=== PATIENT | male | born 1940 | race Caucasian/White ===

== ENCOUNTER 2016-07-22 14:29 | Emergency (ER) | payer MEDICARE ==
[2016-07-22 14:39] VITALS: BP 116/79
--- NOTE | 2016-07-22 15:25 | EDM.PDOC ---
ED HPI Trauma - General Chief Complaint: Lower Extremity Injury/Pain Stated Complaint: LEFT LEG Time Seen by Provider: 07/22/16 14:40 Source: Reports: Patient History Limitations: Reports: No limitations - History of Present Illness INITIAL COMMENTS - FREE TEXT/NARRATIVE: History of present illness: [75-year-old male presenting with planes of left popliteal pain. Patient indicates he is concerned he might have pink blood clot. Patient acknowledges that he doesn't have any reason to bases concern other than he does have left knee pain. Patient denies trauma, denies recent travel, denies any known blood dyscrasias or quite uropathies.] Review of systems: As per history of present illness and below otherwise all systems reviewed and negative. Past medical history: As per history of present illness and as reviewed below otherwise noncontributory. Surgical history: As per history of present illness and as reviewed below otherwise noncontributory. Social history: No reported history of drug or alcohol abuse. Family history: As per history of present illness and as reviewed below otherwise noncontributory. Physical exam: HEENT: Atraumatic, normocephalic, pupils reactive, negative for conjunctival pallor or scleral icterus, mucous membranes moist, throat clear, neck supple, nontender, trachea midline. Lungs: Clear to auscultation, breath sounds equal bilaterally, chest nontender. Heart: S1S2, regular, negative for clicks, rubs, or JVD. Abdomen: Soft, nondistended, nontender. Negative for masses or hepatosplenomegaly. Negative for costovertebral tenderness. Pelvis: Stable nontender. Genitourinary: Deferred. Rectal: Deferred. Extremities: Atraumatic, negative for cords or calf pain. Neurovascular unremarkable. Neuro: Awake, alert, oriented. Cranial nerves II through XII unremarkable. Cerebellum unremarkable. Motor and sensory unremarkable throughout. Exam nonfocal. Global assessment was benign. Patient noted to have some tenderness with active range of motion and palpation behind the popliteal space. No swelling, edema, and or redness. Peripheral pulses equally palpable with equal CMST bilaterally . Diagnostics: [Venous Doppler left lower extremity, CBC, CMP, PT/INR] Therapeutics: [Toradol] Impression: [Leg pain] Plan: [arthritic pain] Definitive disposition and diagnosis as appropriate pending reevaluation and review of above. Allergies/ADRs: Allergies No Known Allergies Allergy (Verified 07/22/16 14:37) Home Medications: Ambulatory Orders Escitalopram [Lexapro] 20 mg PO DAILY 07/22/16 [Confirmed 07/22/16] Meloxicam 7.5 mg PO BID #30 tablet 07/22/16 Simvastatin [Zocor] 20 mg PO DAILY 07/22/16 [Confirmed 07/22/16] Tamsulosin [Flomax] 0.4 mg PO BIDPC 07/22/16 [Confirmed 07/22/16] Venlafaxine [Effexor] 07/22/16 Zolpidem [Ambien] 10 mg PO 07/22/16 Past Medical History Cardiovascular History: Reports: High cholesterol Psychiatric History: Reports: Depression - Infectious Disease History Infectious Disease History: Reports: Chicken pox, Measles, Mumps - Past Surgical History Oncologic Surgical History: Reports: Other (see below) Other Oncologic Surgeries/Procedures: 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 Social & Family History - Family History Family Medical History: Noncontributory - Tobacco Use Smoking Status *Q: Former Smoker Used Tobacco, but Quit: Yes Month Tobacco Last Used: unknown - Alcohol Use Days Per Week of Alcohol Use: 7 Number of Drinks Per Day: 1 Total Drinks Per Week: 7 - Recreational Drug Use Recreational Drug Use: No Review of Systems - Review of Systems Review Of Systems: See Below (See history of present illness) Trauma Exam - Physical Exam Exam: See Below (See history of present illness) Course - Vital Signs Last Recorded V/S: Last Vital Signs Temp 36.2 C 07/22/16 14:37 Pulse 118 H 07/22/16 14:37 Resp 18 07/22/16 14:37 BP 116/79 07/22/16 14:37 Pulse Ox 97 07/22/16 14:37 - Orders/Labs/Meds Labs: Laboratory Tests 07/22/16 07/22/16 07/22/16 Range/Units 15:14 15:14 15:14 WBC 12.06 H (4.0-11.0) K/uL RBC 4.89 (4.50-5.90) M/uL Hgb 15.7 (13.0-17.0) g/dL Hct 46.3 (38.0-50.0) % MCV 94.7 (80.0-98.0) fL MCH 32.1 H (27.0-32.0) pg MCHC 33.9 (31.0-37.0) g/dL RDW Std Deviation 47.3 (28.0-62.0) fl RDW Coeff of Cedric 14 (11.0-15.0) % Plt Count 223 (150-400) K/uL MPV 10.50 (7.40-12.00) fL Neut % (Auto) 51.2 (48.0-80.0) % Lymph % (Auto) 41.8 H (16.0-40.0) % [place] % (Auto) 5.6 (0.0-15.0) % Eos % (Auto) 1.2 (0.0-7.0) % Baso % (Auto) 0.2 (0.0-1.5) % Neut # (Auto) 6.2 H (1.4-5.7) K/uL Lymph # (Auto) 5.0 H (0.6-2.4) K/uL [place] # (Auto) 0.7 (0.0-0.8) K/uL Eos # (Auto) 0.1 (0.0-0.7) K/uL Baso # (Auto) 0.0 (0.0-0.1) K/uL Nucleated RBC % 0.0 /100WBC Nucleated RBCs # 0 K/uL INR 1.02 (0.86-1.11) Sodium 136 (136-146) mmol/L Potassium 4.4 (3.5-5.1) mmol/L Chloride 105 (98-110) mmol/L Carbon Dioxide 20 L (21-31) mmol/L BUN 20 (6.0-23.0) mg/dL Creatinine 1.4 (0.6-1.5) mg/dL Est Cr Clr Drug Dosing 51.58 mL/min Estimated GFR (MDRD) 49.7 ml/min Glucose 118 H (60-110) mg/dL Calcium 9.6 (8.8-10.8) mg/dL Total Bilirubin 0.6 (0.1-1.5) mg/dL AST 19 (5-40) IU/L ALT 25 (8-54) IU/L Alkaline Phosphatase 72 (40-150) Total Protein 6.9 (6.0-8.0) g/dL Albumin 4.3 (3.4-4.8) g/dL Globulin 2.6 (2.0-3.5) g/dL Albumin/Globulin Ratio 1.7 (1.3-2.8) Meds: Medications Discontinued Medications Generic Name Dose Route Start Last Admin Trade Name Waleq PRN Reason Stop Dose Admin Ketorolac Tromethamine 60 mg 07/22/16 16:20 07/22/16 16:48 Toradol IM 07/22/16 16:21 60 mg ONETIME ONE Administration Departure - Departure Time of Disposition: 16:58 Disposition: Home, Self-Care 01 Condition: good Clinical Impression: Knee pain, left Clinical Impression: (Ruled Out): Knee pain, left anterior Prescriptions: Meloxicam 7.5 mg PO BID #30 tablet Referrals: PCP,None [Primary Care Provider] - Forms: ED Department Discharge, ED Summary Discharge Additional Instructions: The following information is given to patients seen in the emergency department who are being discharged to home. This information is to outline your options for follow-up care. We provide all patients seen in our emergency department with a follow-up referral. The need for follow-up, as well as the timing and circumstances, are variable depending upon the specifics of your emergency department visit. If you don't have a primary care physician on staff, we will provide you with a referral. We always advise you to contact your personal physician following an emergency department visit to inform them of the circumstance of the visit and for follow-up with them and/or the need for any referrals to a consulting specialist. The emergency department will also refer you to a specialist when appropriate. This referral assures that you have the opportunity for follow-up care with a specialist. All of these measure are taken in an effort to provide you with optimal care, which includes your follow-up. Under all circumstances we always encourage you to contact your private physician who remains a resource for coordinating your care. When calling for follow-up care, please make the office aware that this follow-up is from your recent emergency room visit. If for any reason you are refused follow-up, please contact the [facility] Emergency Department at and asked to speak to the emergency department charge nurse. Take medication as directed Followup with PCP 1-2 days Turned ED as needed as discussed
--- NOTE | 2016-07-22 16:01 | US ---
ULTRASOUND EXAMINATION OF the left lower extremity WITH DOPPLER HISTORY: Pain FINDINGS: Examination of the left leg was performed from the groin to the calf region. All visualized segment s including common femoral, proximal greater saphenous, superficial femoral, popliteal and calf vein s appear patent with good compressibility and augmentation. There is no evidence of deep vein throm bosis. IMPRESSION: No evidence of a DVT.
[2016-07-22] MEDS ORDERED: Ketorolac 60 MG/2 ML SDV IM ONE (16:20)
== END 2016-07-22 17:00 | disposition home or self-care (01) ==
LOC: MW.ED 14:29
DX: M25.562 Pain in left knee (principal); F32.9 Major depressive disorder, single episode, unspecified; E78.00 Pure hypercholesterolemia, unspecified; Z87.891 Personal history of nicotine dependence; Z79.899 Other long term (current) drug therapy
CPT/HCPCS: 36415; 80053; 85025; 85610; 93971; 96372; 99284; J1885; 99283

== ENCOUNTER 2018-11-02 06:28 | Day surgery (SDC) | payer MEDICARE ==
[~2018-11-02 06:28] MED LIST: Lactated Ringers 1,000 ML IV SCH
[2018-11-02] MEDS ORDERED: Lidocaine 2% 5 ML SDV ONE (07:37)
[2018-11-02] MEDS ORDERED: fentaNYL 100 MCG/2 ML SDV ONE (07:37)
[2018-11-02] MEDS ORDERED: Midazolam 1 MG/ML 2 ML SDV ONE (07:37)
[2018-11-02] MEDS ORDERED: Propofol 200 MG/20 ML SDV ONE ×2 (07:38→08:17)
--- NOTE | 2018-11-02 07:39 | PCM.PREANE ---
Preanesthetic Assessment - Anesthesia/Transfusion/Family Hx Anesthesia History: Prior Anesthesia Without Reaction Family History of Anesthesia Reaction: No Transfusion History: No Prior Transfusion(s) - Review of Systems General: No Symptoms Pulmonary: No Symptoms Cardiovascular: No Symptoms Gastrointestinal: No Symptoms Neurological: No Symptoms - Physical Assessment NPO Status Date: 11/02/18 NPO Status Time: 02:00 O2 Sat by Pulse Oximetry: 98 Respiratory Rate: 16 Vital Signs: Last Vital Signs Temp 97.0 F 11/02/18 07:05 Pulse 108 H 11/02/18 07:05 Resp 16 11/02/18 07:05 BP 129/71 11/02/18 07:05 Pulse Ox 98 11/02/18 07:05 Height: 6 ft 2 in Weight: 106.594 kg ASA Class: 2 Mental Status: Alert & Oriented x3 Airway Class: Mallampati = 2 Dentition: Reports: Normal Dentition ROM/Head Extension: Full Lungs: Clear to Auscultation, Normal Respiratory Effort Cardiovascular: Regular Rate, Regular Rhythm - Allergies Allergies/Adverse Reactions: Allergies Allergy/AdvReac Type Severity Reaction Status Date / Time azithromycin Allergy Diarrhea Verified 10/28/18 12:50 - Blood Blood Available: No - Anesthesia Plan Pre-Op Medication Ordered: None - Acknowledgements Anesthesia Type Planned: MAC Pt an Appropriate Candidate for the Planned Anesthesia: Yes Alternatives and Risks of Anesthesia Discussed w Pt/Guardian: Yes Pt/Guardian Understands and Agrees with Anesthesia Plan: Yes Additional Comments: PMH: prostate ca, scheduled to start Radiation therapy, magor sleep disturbance - up hourly at night- tired and sleepy all day- uses adderal x 20 years for this , denies snoring/sleep apnea. neg study for jeremy 5 yr ago. PLAN: tiva PreAnesthesia Questionnaire HEENT History: Reports: Other (See Below) Other HEENT History: wears glasses, Cardiovascular History: Reports: High Cholesterol Respiratory History: Reports: None Gastrointestinal History: Reports: Colon Polyp, Diverticulosis Genitourinary History: Reports: BPH, Prostate Disorder Musculoskeletal History: Reports: Arthritis Neurological History: Reports: Concussion Psychiatric History: Reports: Depression Endocrine/Metabolic History: Reports: None Hematologic History: Reports: None Immunologic History: Reports: None Oncologic (Cancer) History: Reports: Basal Cell Carcinoma, Prostate Dermatologic History: Reports: None - Infectious Disease History Infectious Disease History: Reports: Chicken Pox, Measles, Mumps - Past Surgical History Head Surgeries/Procedures: Reports: None HEENT Surgical History: Reports: None Cardiovascular Surgical History: Reports: None Respiratory Surgical History: Reports: None GI Surgical History: Reports: Colonoscopy Other Female Surgeries/Procedures: prostate cancer Male Surgical History: Reports: Other (See Below) Endocrine Surgical History: Reports: None Neurological Surgical History: Reports: None Musculoskeletal Surgical History: Reports: None Oncologic Surgical History: Reports: Other (See Below) Other Oncologic Surgeries/Procedures: 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 Dermatological Surgical History: Reports: Skin Biopsy - SUBSTANCE USE Smoking Status *Q: Former Smoker Recreational Drug Use History: No - HOME MEDS Home Medications: Home Meds Tamsulosin [Flomax] 2 tab PO BIDPC 07/22/16 [History] Dextroamphetamine/Amphetamine [Adderall 20 mg Tablet] 2 tab PO DAILY 10/28/18 [ History] Loperamide HCl [Imodium A-D] 1 tab PO ASDIRECTED PRN 10/28/18 [History] Multivit-Min/FA/Lycopene/Lut [Centrum Silver Tablet] 1 tab PO DAILY 10/28/18 [ History] Sildenafil Citrate 2 - 3 tab PO ASDIRECTED PRN 10/28/18 [History] Simvastatin [Zocor] 40 mg PO DAILY 10/28/18 [History] traZODone HCl [Trazodone HCl] 150 mg PO BEDTIME PRN 10/28/18 [History] Meloxicam 7.5 mg PO BID PRN 10/29/18 [History] - CURRENT (IN HOUSE) MEDS Current Meds: Current Medications Lactated Ringer's (Ringers, Lactated) 1,000 mls @ 125 mls/hr IV ASDIRECTED NAVYA Last Admin: 11/02/18 07:00 Dose: 125 mls/hr
[2018-11-02] MEDS ORDERED: Phenylephrine/Normal Saline 100 MCG/ML 10 ML Syringe ONE (08:32)
--- NOTE | 2018-11-02 08:51 | PCM.OPNOTE ---
- General Post-Op/Procedure Note Date of Surgery/Procedure: 11/02/18 Operative Procedure(s): Colonoscopy with cold cecal and ascending colon polypectomy and snare rectal polypectomy Pre Op Diagnosis: Personal history of colon polyps. Family history of colon cancer. Post-Op Diagnosis: Cecal, ascending colon and rectal polyps. Pancolonic diverticulosis. Anesthesia Technique: MAC (ASA II) Primary Surgeon: Edmar Gann Condition: Good Free Text/Narrative:: DICTATION 224871 CPT CODE [id number]
[2018-11-02] MEDS ORDERED: Lactated Ringers 1,000 ML IV SCH (09:00)
--- NOTE | 2018-11-02 09:20 | PCM.POSTAN ---
POST ANESTHESIA ASSESSMENT - MENTAL STATUS Mental Status: Alert, Oriented - VITAL SIGNS Pulse Rate: 78 SaO2: 96 Resp Rate: 12 Blood Pressure: 104/65 - RESPIRATORY Respiratory Status: Respiratory Rate WNL, Airway Patent, O2 Saturation Stable - CARDIOVASCULAR CV Status: Pulse Rate WNL, Blood Pressure Stable - GASTROINTESTINAL GI Status: No Symptoms - PAIN Pain Score: 0 - POST OP HYDRATION Hydration Status: Adequate & Stable - OBSERVATIONS Free Text/Narrative:: Pt in good spirts with no complaints of pain. Ok to discharge to phase II recovery.
[2018-11-02 09:37] VITALS: BP 104/65; PULSE 78
--- NOTE | 2018-11-02 09:37 | PCM48HPAN ---
Post Anesthesia Note - EVALUATION WITHIN 48HRS OF ANESTHETIC Vital Signs in Normal Range: Yes Patient Participated in Evaluation: Yes Respiratory Function Stable: Yes Airway Patent: Yes Cardiovascular Function Stable: Yes Hydration Status Stable: Yes Pain Control Satisfactory: Yes Nausea and Vomiting Control Satisfactory: Yes Mental Status Recovered: Yes Pulse Rate: 78 Resp Rate: 12 Blood Pressure: 104/65 - COMMENTS/OBSERVATIONS Free Text/Narrative:: Pt up in chair with no pain or complaints. No apparent complications.
--- NOTE | 2018-11-02 11:08 | OR ---
SURGEON: Edmar Gann M.D. DATE OF PROCEDURE: 11/02/2018 OPERATION PERFORMED: Colonoscopy with cold cecal and ascending colon polypectomy and snare rectal polypectomy. PRIMARY SURGEON: Edmar Gann M.D. ANESTHESIA: MAC. ASA CLASSIFICATION: II. PREOPERATIVE DIAGNOSES: 1. Personal history of colon polyps. 2. Family history of colon cancer. 3. Diverticulosis. POSTOPERATIVE DIAGNOSES: 1. Cecal polyp. 2. Ascending colon polyp. 3. Rectal polyp. 4. Pancolonic diverticulosis. DESCRIPTION OF PROCEDURE: The patient was taken to the endoscopy room and positioned on the endoscopy table in the left lateral decubitus position. Time-out was called for appropriate identification of the patient and procedure. Monitored anesthesia care was provided. The colonoscope was inserted into the rectum and advanced with moderate difficulty to the cecum. The cecum was identified by internal landmarks and external pressure. The colonoscope was retroflexed to visualize the ascending colon from below, then straightened. One polyp was encountered in the cecum and this was removed with cold biopsy forceps. A second polyp was encountered in the ascending colon and likewise removed with the cold biopsy forceps and sent separately. Diverticular changes were noted beginning in the ascending colon. The transverse colon was relatively devoid of diverticulosis. The cecum, ascending colon, hepatic flexure, transverse colon, splenic flexure, descending colon, sigmoid colon, and rectum were well visualized. The sigmoid colon demonstrates moderate diverticular disease. No polyps were encountered in the transverse colon, hepatic or splenic flexure, descending colon, or sigmoid colon. A third polyp was encountered in the rectum and this was removed with snare electrocautery and recovered. The polypectomy site was inspected and was dry. The colonoscope was retroflexed to visualize the anal orifice from above. Again, no tumors or polyps were seen and there were no acute hemorrhoidal changes. The colonoscope was then straightened, the rectum aspirated, and the colonoscope removed. The patient tolerated the procedure well and was taken to recovery room in stable condition. HARRIS / CARLO /[id number]
== END 2018-11-02 09:40 | disposition home or self-care (01) ==
LOC: MW.SDS 06:28
PROVIDERS: ATTEND Surgery
DX: D12.0 Benign neoplasm of cecum (principal); D12.2 Benign neoplasm of ascending colon; D12.8 Benign neoplasm of rectum; K57.30 Diverticulosis of large intestine without perforation or abscess without bleeding; M19.042 Primary osteoarthritis, left hand; N40.1 Benign prostatic hyperplasia with lower urinary tract symptoms; N13.8 Other obstructive and reflux uropathy; E78.00 Pure hypercholesterolemia, unspecified; F32.9 Major depressive disorder, single episode, unspecified; Z86.010 Personal history of colon polyps; Z80.0 Family history of malignant neoplasm of digestive organs; Z88.1 Allergy status to other antibiotic agents; Z79.899 Other long term (current) drug therapy; Z79.1 Long term (current) use of non-steroidal anti-inflammatories (NSAID); Z87.891 Personal history of nicotine dependence
CPT/HCPCS: 45380; 45385; 88305; J2001; J2250; J2370; J2704; J3010; J7120; 00811

== ENCOUNTER 2020-10-10 07:06 | Day surgery (SDC) | payer MEDICARE ==
[~2020-10-10 07:06] MED LIST changes: +Sodium Chloride 0.9% 10 ML SDV IV PRN; +Sodium Chloride 0.9% 10 ML Syringe FLUSH PRN; +Sodium Chloride 0.9% 2.5 ML Syringe FLUSH PRN; +propofoL 50 ML ONE
[2020-10-10] MEDS ORDERED: fentaNYL 100 MCG/2 ML SDV ONE (07:11)
--- NOTE | 2020-10-10 07:46 | PCM.PREANE ---
Preanesthetic Assessment - Anesthesia/Transfusion/Family Hx Anesthesia History: Prior Anesthesia Without Reaction Transfusion History: No Prior Transfusion(s) - Physical Assessment Vital Signs: Last Vital Signs Temp 97.0 F 10/10/20 07:18 Pulse 123 H 10/10/20 07:18 Resp 15 10/10/20 07:18 BP 103/69 10/10/20 07:18 Pulse Ox 98 10/10/20 07:18 Height: 6 ft 2 in Weight: 98.43 kg ASA Class: 2 Airway Class: Mallampati = 3 Thyro-Mental Finger Breadths: 3 Mouth Opening Finger Breadths: 3 - Allergies Allergies/Adverse Reactions: Allergies Allergy/AdvReac Type Severity Reaction Status Date / Time azithromycin Allergy Diarrhea Verified 10/04/20 14:39 doxycycline Allergy Diarrhea Verified 10/04/20 14:39 - Acknowledgements Anesthesia Type Planned: General Anesthesia Pt an Appropriate Candidate for the Planned Anesthesia: Yes Alternatives and Risks of Anesthesia Discussed w Pt/Guardian: Yes Pt/Guardian Understands and Agrees with Anesthesia Plan: Yes PreAnesthesia Questionnaire HEENT History: Reports: Other (See Below) Other HEENT History: wears glasses, Cardiovascular History: Reports: High Cholesterol Respiratory History: Reports: None Gastrointestinal History: Reports: Chronic Diarrhea, Colon Polyp, Diverticulosis, Other (See Below) Other Gastrointestinal History: current rectal bleeding Genitourinary History: Reports: BPH, Prostate Disorder Other Genitourinary History: hx of prostate cancer- received Radiation therapy Musculoskeletal History: Reports: Arthritis Neurological History: Reports: Concussion, Head Trauma Other Neuro History: hx of fx skull as a child Psychiatric History: Reports: Depression Endocrine/Metabolic History: Reports: None Hematologic History: Reports: None Immunologic History: Reports: None Oncologic (Cancer) History: Reports: Basal Cell Carcinoma, Prostate Dermatologic History: Reports: None - Infectious Disease History Infectious Disease History: Reports: Chicken Pox, Measles, Mumps - Past Surgical History Head Surgeries/Procedures: Reports: None HEENT Surgical History: Reports: None Cardiovascular Surgical History: Reports: None Respiratory Surgical History: Reports: None GI Surgical History: Reports: Colonoscopy Other Female Surgeries/Procedures: prostate cancer Male Surgical History: Reports: Other (See Below) Endocrine Surgical History: Reports: None Neurological Surgical History: Reports: None Musculoskeletal Surgical History: Reports: None Oncologic Surgical History: Reports: Other (See Below) Other Oncologic Surgeries/Procedures: basal cell 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 Radiation therapy for Prostate Dermatological Surgical History: Reports: Skin Biopsy - SUBSTANCE USE Tobacco Use Status *Q: Former Tobacco User Tobacco Use Within Last Twelve Months: No Recreational Drug Use History: No - HOME MEDS Home Medications: Home Meds Tamsulosin [Flomax] 0.8 mg PO BEDTIME 07/22/16 [History] Dextroamphetamine/Amphetamine [Adderall 20 mg Tablet] 20 mg PO BID 10/28/18 [H istory] Loperamide HCl [Imodium A-D] 1 tab PO ASDIRECTED PRN 10/28/18 [History] Multivit-Min/FA/Lycopen/Lutein [Centrum Silver Tablet] 1 tab PO DAILY 10/28/18 [History] Sildenafil Citrate 2 - 3 tab PO ASDIRECTED PRN 10/28/18 [History] Simvastatin [Zocor] 40 mg PO DAILY 10/28/18 [History] traZODone HCl [Trazodone HCl] 150 mg PO BEDTIME PRN 10/28/18 [History] Meloxicam 7.5 mg PO ASDIRECTED PRN 10/29/18 [History] Venlafaxine HCl [Venlafaxine ER] 225 mg PO QAM 11/02/18 [History] Folic Acid 0.8 mg PO DAILY 10/04/20 [History] Zolpidem [Ambien] 10 mg PO BEDTIME 10/04/20 [History] - CURRENT (IN HOUSE) MEDS Current Meds: Current Medications Lactated Ringer's (Ringers, Lactated) 1,000 mls @ 125 mls/hr IV ASDIRECTED NAVYA Sodium Chloride (Sodium Chloride 0.9% 10 Ml Syringe) 10 ml FLUSH ASDIRECTED PRN PRN Reason: Keep Vein Open Sodium Chloride (Sodium Chloride 0.9% 2.5 Ml Syringe) 2.5 ml FLUSH ASDIRECTED PRN PRN Reason: Keep Vein Open Sodium Chloride (Sodium Chloride 0.9% 10 Ml Syringe) 10 ml FLUSH ASDIRECTED PRN PRN Reason: Keep Vein Open Sodium Chloride (Sodium Chloride 0.9% 2.5 Ml Syringe) 2.5 ml FLUSH ASDIRECTED PRN PRN Reason: Keep Vein Open Sodium Chloride (Sodium Chloride 0.9% 10 Ml Sdv) 10 ml IV ASDIRECTED PRN PRN Reason: IV Use Discontinued Medications Fentanyl (Fentanyl 100 Mcg/2 Ml Sdv) Confirm Administered Dose 100 mcg .ROUTE .STK-MED ONE Stop: 10/10/20 07:12 Propofol (Diprivan 50 Ml) Confirm Administered Dose 50 mls @ as directed .ROUTE .STK-MED ONE Stop: 10/10/20 07:04 Lidocaine HCl (Lidocaine 1% 5 Ml Sdv) Confirm Administered Dose 5 ml .ROUTE .STK-MED ONE Stop: 10/10/20 07:12
--- NOTE | 2020-10-10 08:34 | PCM.POSTAN ---
POST ANESTHESIA ASSESSMENT - VITAL SIGNS Vital Signs: Last Vital Signs Temp 97.0 F 10/10/20 07:18 Pulse 123 H 10/10/20 07:18 Resp 15 10/10/20 07:18 BP 103/69 10/10/20 07:18 Pulse Ox 98 10/10/20 07:18
--- NOTE | 2020-10-10 08:35 | PCM48HPAN ---
Post Anesthesia Note - EVALUATION WITHIN 48HRS OF ANESTHETIC Vital Signs in Normal Range: Yes Patient Participated in Evaluation: Yes Respiratory Function Stable: Yes Airway Patent: Yes Cardiovascular Function Stable: Yes Hydration Status Stable: Yes Pain Control Satisfactory: Yes Nausea and Vomiting Control Satisfactory: Yes Mental Status Recovered: Yes Vital Signs: Last Vital Signs Temp 97.0 F 10/10/20 07:18 Pulse 123 H 10/10/20 07:18 Resp 15 10/10/20 07:18 BP 103/69 10/10/20 07:18 Pulse Ox 98 10/10/20 07:18
[2020-10-10 08:49] VITALS: BP 98/58; PULSE 99
--- NOTE | 2020-10-10 13:20 | PCM.OPNOTE ---
- General Post-Op/Procedure Note Date of Surgery/Procedure: 10/10/20 Operative Procedure(s): Diagnostic colonoscopy Findings: proctitis Pre Op Diagnosis: Bright red bleeding per rectum Post-Op Diagnosis: proctitis Anesthesia Technique: VIOLETA Primary Surgeon: Quin Crews Condition: Stable Free Text/Narrative:: Intake & Output 10/09/20 10/10/20 10/10/20 22:59 06:59 14:59 Intake Total 950 Balance 950
--- NOTE | 2020-10-10 18:47 | OR ---
SURGEON: QUIN CREWS MD DATE OF PROCEDURE: 10/10/2020 PREOPERATIVE DIAGNOSIS: Bright red bleeding per rectum. POSTOPERATIVE DIAGNOSIS: Proctitis. PROCEDURE PERFORMED: Diagnostic colonoscopy. PRIMARY SURGEON: Quin Crews MD ANESTHESIA: MAC. INSTRUMENT USED: Olympus colonoscope. EXTENT OF THE EXAM: To the cecum. PREPARATION: Good. LIMITATIONS: None. INDICATIONS FOR EXAMINATION: The patient is a 79-year-old male with a history of diverticulosis who presents to clinic with bright red bleeding per rectum. He also has a history of prostate cancer, status post radiation. During his last colonoscopy, he was noted to have a rectal polyp. His radiation oncologist would like him to have a diagnostic colonoscopy to rule out a recurrent mass versus radiation proctitis. The patient and I discussed the procedure, expected perioperative course, and the risks. He verbalized understanding and wishes to proceed. PROCEDURE IN DETAIL: The patient was brought in to the endoscopy suite and placed in the left lateral decubitus position. A time-out was completed verifying the patient's name, age, date of , allergies, and procedure to be performed. Monitored anesthesia care was induced and continuous oxygen was provided via nasal cannula throughout the procedure. After adequate sedation was achieved, a digital rectal exam was performed. This exam was within normal limits. A well-lubricated colonoscope was inserted in the rectum and I immediately noted some diffuse inflammation associated with a small amount of bleeding. This was consistent with proctitis. The scope was then gently guided throughout the colon under direct visualization to the level of the cecum. The cecum was identified by both visual and anatomic landmarks. A photograph was taken of the cecal cap; however, I was unable to retroflex the scope within the cecum. The scope was fully withdrawn while examining the color, texture, anatomy, and integrity of mucosa from the cecum to the anal canal. The patient was noted to have diverticulosis throughout the colon, but there were no evidence of any colonic polyps. The scope was then brought into the rectum and multiple photographs were taken of the rectum. The scope was gently retroflexed within the rectum to allow visualization of the anal canal opening. The hemorrhoidal tissue appeared normal. The scope was straightened out and fully withdrawn. The cecum to anus time was 9 minutes. The patient tolerated the procedure well and was transferred to the PACU in stable condition. ENDOSCOPIC DIAGNOSES: 1. Diverticulosis. 2. Proctitis. RECOMMENDATION: Follow up in clinic in two weeks. KALLI / CARLO /[id number]
== END 2020-10-10 09:12 | disposition home or self-care (01) ==
LOC: MW.SDS 07:06
PROVIDERS: ATTEND Surgery
DX: K62.89 Other specified diseases of anus and rectum (principal); K57.31 Diverticulosis of large intestine without perforation or abscess with bleeding; K64.9 Unspecified hemorrhoids; Z85.46 Personal history of malignant neoplasm of prostate; Z92.3 Personal history of irradiation; N40.0 Benign prostatic hyperplasia without lower urinary tract symptoms; Z88.1 Allergy status to other antibiotic agents; Z88.0 Allergy status to penicillin; Z79.899 Other long term (current) drug therapy; Z98.890 Other specified postprocedural states; Z87.891 Personal history of nicotine dependence
CPT/HCPCS: 45378; J2704; J3010; J7120; 00811; 99100

== ENCOUNTER 2022-10-07 10:50 | Emergency (ER) | payer OTHER ==
[2022-10-07 12:45] VITALS: BP 113/63; PULSE 82
== END 2022-10-07 12:42 | disposition home or self-care (01) ==
LOC: MW.ED 10:50
DX: R21 Rash and other nonspecific skin eruption (principal); E78.00 Pure hypercholesterolemia, unspecified; Z79.899 Other long term (current) drug therapy
CPT/HCPCS: 99282; 99283